=== PATIENT | female | born 1965 | race Two or more races ===

== ENCOUNTER → 2022-07-08 | Outpatient (BNVA) | payer MEDICAID, SELFPAY | END | disposition home or self-care (01) | PROVIDERS: PCP Registered Nurse; Referring Provider Registered Nurse; Visit Provider Registered Nurse | DX: J20.9 Acute bronchitis, unspecified (principal); I10 Essential (primary) hypertension | CPT/HCPCS: 87811; 94640; 96372; 99212; C9803; J1885; A9270 ==

== ENCOUNTER 2024-10-11 07:57 | Outpatient (AMB) | payer MEDICAID, SELFPAY ==
[2024-10-11 08:23] VITALS: BP 141/82; PULSE 78; RESP 18; TEMP 36.3; O2SAT 93; BMI 39.1
--- NOTE | 2024-10-11 08:23 | ORTHONT_ITS ---
Vital signs 10/11/24 08:23 Height 1.47 m Height Method Stated Weight 84.51 kg Weight Measurement Method Standing Scale BMI 39.1 BP 141/82 H Blood Pressure Source Automatic Cuff Blood Pressure Location Left Upper Arm Position Sitting Respiration 18 Pulse 78 Pulse Source Monitor Temp 97.4 F Temp Source Temporal Artery Scan Pulse Oximetry (%) 93 L Oxygen Delivery Method Room Air Med/Allergies Allergies & Medications Allergies No Known Allergies Allergy (Verified 10/11/24 08:24) Medication Reconciliation beclomethasone dipropionate 40 mcg/actuation HFA breath activated aerosol (Qvar RediHaler) 1 puff inhalation BID 09/30/18 [History Confirmed 10/11/24] acetaminophen 500 mg capsule 500 mg PO Q6H PRN pain #14 caps 10/02/19 [Rx Confirmed 10/11/24] amlodipine 10 mg tablet 10 mg PO QDAY 07/08/22 [History Confirmed 10/11/24] albuterol sulfate 90 mcg/actuation aerosol inhaler (ProAir HFA) 2 puff inhalation Q6H PRN shortness of breath or wheezing #8.5 grams 08/06/22 [Rx Confirmed 10/11/24] sodium chloride 0.65 % nasal spray aerosol (Saline Nasal) 2 spray intranasal QID #88 mL 01/25/23 [Rx Confirmed 10/11/24] ciprofloxacin HCl 500 mg tablet (Cipro) 500 mg PO BID #10 tabs 07/10/23 [Rx Confirmed 10/11/24] Exam Exam Patient is in no acute distress and is cooperative with the examination today. Breathing is nonlabored. Patient has a normal mood and affect. Bilateral extremities were evaluated and demonstrates sensation intact to light touch. Palpable pedal pulses are present. No significant edema is present. Bilateral hips were examined. The patient has no pain with log roll of the hips. Internal rotation to 30 degrees and external rotation to 30 degrees is painless. Negative FADIR. Right knee was examined today. The right knee is in reasonable alignment. Range of motion from 0-120 degrees. Knee is stable to varus and valgus as well as AP translation with <5mm. Patient has a negative McMurrays. There is no pain with patellofemoral compression and no crepitus noted. The knee is nontender to palpation. Left knee was examined today. The left knee is in [varus] alignment. Range of motion from [0-115] degrees. Knee is stable to varus and valgus as well as AP translation with <5mm. Patient has a [negative] McMurrays. There is [no] pain with patellofemoral compression and [no] crepitus noted. The knee is [tender] to palpation [medially]. Assessment and Plan Problem List (1) Arthritis of left knee: Status: Acute Plan: Patient is a pleasant 59-year-old female with left knee pain and left knee arthritis. We discussed nonoperative and operative options. She had a cortisone injection recently and reported good relief. I Discussed with her that I would like to see weightbearing x-rays. We can discuss different treatment options depending on what that shows. She just had a recent injection and is doing well from it so we will see her back after this is done or worn off Office Procedures GNS Level of Care Nursing/Assessment Patient Status: Initial/New Patient Nursing Assessment/Reassesment: Medication Reconciliation, Update PMH in EMR and Vital Signs Coordination of Care: Complex Care and Chronic Disease 1-5, Education Complex Pt/Fam, Consent,records obtained, informed consent, 1 Ins Authorization, Results/Orders obtained and Staff clarify orders Special Needs: Language special needs New Patient Charge New Patient Point Assignment: 1109 New Patient Point Charge: HUMAN RESOURCES PROJECT MANAGER Level 3 (9711-0563) MA Intake Visit Data Collection New Patient or Established: Established Patient (seen at [facility] within 3 years) Reason for Visit:: BILATERAL OSTEOARTHRITIS BILATERAL KNEE Seen by Clinical Staff ONLY (RN/MA): No Manager Company Required: Yes PCP or OBGYN visit in last 3 months: Yes Hx Now: No Do You Feel Safe at Home: Yes Authorities Contacted: N/A Questionairres Past Medical History Past Medical History Have you ever been diagnosed with any of the following: Neurological Problems Seizures: No Cardiology Problems Congestive Heart Failure: No Hypertension: Yes Respiratory Problems Chronic Obstructive Pulmonary Disease (COPD): No Asthma: Yes Stomache/Intestinal Problems Gastroesophageal Reflux Disease: Yes Genital/Urinary Problems Renal Disease: No Musculoskeletal Problems Arthritis: Yes Endocrine Problems Diabetes Mellitus Type 1: No Diabetes Mellitus Type 2: No Other Problems Blood Transfusions: No Anesthesia Reactions: Yes Cancer: No Subjective Visit Visit for: new patient and knee (BILATERAL) Immunization / Flu Flu Vaccine in the Last 12 Months: Yes Flu Vaccine Exclusion Criteria: Already Received History of Present Illness Chief complaint: left > right knee pain Patient is a pleasant 59-year-old female with left greater than right knee pain. This knee pain has been ongoing for several months. She had a recent injection and reports that this has helped. She has not had any anti- inflammatories or physical therapy Personal History Occupation: STAY HOME Hobbies: NONE Pain Pain level (0-10): 0 Ambulatory data Ambulatory device: none Treatments Number of previous injections: 1 Improvement with previous injections: Yes Improvement with PT: No Improvement with NSAIDS: no Review of Systems Review of Systems: All systems negative unless otherwise noted in HPI.
== END 2024-10-11 09:13 | disposition home or self-care (01) ==
LOC: HODSRG 07:57
PROVIDERS: PCP Nurse Practitioner Family; Referring Provider Nurse Practitioner Family; Supervising Provider Orthopaedic Surgery Adult Reconstructive Orthopaedic Surgery; Visit Provider Orthopaedic Surgery Adult Reconstructive Orthopaedic Surgery
DX: M17.12 Unilateral primary osteoarthritis, left knee (principal); M25.562 Pain in left knee; M25.561 Pain in right knee; I10 Essential (primary) hypertension; K21.9 Gastro-esophageal reflux disease without esophagitis
CPT/HCPCS: 99203; G0463

== ENCOUNTER 2024-12-15 10:37 | Outpatient (RCR) | payer MEDICAID, SELFPAY | END 2025-01-09 23:59 | disposition home or self-care (01) | LOC: SCTC 10:37 | PROVIDERS: PCP Family Medicine; Referring Provider Nurse Practitioner Family; Visit Provider Nurse Practitioner Family | DX: D32.0 Benign neoplasm of cerebral meninges (principal) | CPT/HCPCS: 99212; G0463 ==

== ENCOUNTER → 2025-01-02 | Outpatient (CLI) | payer MEDICAID, SELFPAY ==
--- NOTE | 2025-01-02 14:44 | XR_ITS ---
Examination: Bilateral knees 2 views Right lateral knee left lateral knee 2 views Bilateral axial knees single view TECHNIQUE: Bilateral AP knees standing single view, bilateral PA knees standing single view flexion. Standing right lateral knee left lateral knee 2 views Bilateral axial knees single view Exam date and time: January 02, 2025 1502 hours INDICATIONS: Bilateral knee pain beginning 2 years ago. FINDINGS: Moderate osteopenia Moderate to advanced narrowing medial joint space right knee Moderate osteoarthritis lateral and right patellofemoral joints Mild narrowing medial joint space left knee Mild osteoarthritis lateral and left patellofemoral joints IMPRESSION: Osteoarthritis as above, most prominent medial joint space right knee
== END | disposition home or self-care (01) ==
PROVIDERS: PCP Family Medicine; Referring Provider Orthopaedic Surgery Adult Reconstructive Orthopaedic Surgery; Visit Provider Orthopaedic Surgery Adult Reconstructive Orthopaedic Surgery
DX: M17.0 Bilateral primary osteoarthritis of knee (principal)
CPT/HCPCS: 73564

== ENCOUNTER 2025-01-06 02:22 | Emergency (ER) | payer MEDICAID, SELFPAY ==
[2025-01-06 02:23] VITALS: BMI 36.3
[2025-01-06 02:31] VITALS: BP 163/81; PULSE 95; RESP 20; TEMP 37.1; O2SAT 95
[2025-01-06] MEDS: AMOXICILLIN/POT CLAV 875 TABLET 1 TAB PO (02:53)
[2025-01-06] MEDS: DEXAMETHASONE SOD PHOS INJ 10 MG/ML VIAL PO (02:53)
--- NOTE | 2025-01-06 04:03 | EDNOTE_ITS ---
Upper Respiratory Inf. RME/HPI General Chief Complaint: Flu Like Symptoms Stated Complaint: cough,unable to breathe through nose Time Seen by Provider: 01/06/25 02:34 Arrival date/time: 01/06/25 02:22 59F with history of asthma and HTN presents to ED with 1 week of cough, nasal congestion, and can't breathe through nose. Limitations: no limitations Related Data Home Medications ?Medication ?Instructions ?Recorded ?Confirmed beclomethasone dipropionate 40 1 puff inhalation BID 1 12/01/17 10/11/24 mcg/actuation HFA breath activated aerosol (Qvar RediHaler) amlodipine 10 mg tablet 10 mg PO QDAY 07/08/2210/11 Previous Rx's ?Medication ?Instructions ?Recorded acetaminophen 500 mg capsule 500 mg PO Q6H PRN pain #1 4 caps 10/02/19 albuterol sulfate 90 mcg/actuation 2 puff inhalation Q 6H PRN 08/06/22 aerosol inhaler (ProAir HFA) shortness of breath or wh eezing #8.5 grams sodium chloride 0.65 % nasal spray 2 spray intranasal QID #88 mL 01/25/23 aerosol (Saline Nasal) ciprofloxacin HCl 500 mg tablet 500 mg PO BID #10 tabs 07/10/23 (Cipro) amoxicillin 875 mg-potassium 1 tab PO BID 7 days #14 t abs 01/06/25 clavulanate 125 mg tablet Allergies Allergy/AdvReac Type Severity Reaction Status Date / Time No Known Allergies Allergy Verified 01/06/25 02:25 Review of Systems Review of Systems Systems Reviewed: All systems reviewed, normal except as documented Constitutional Constitutional: Reports system reviewed and no additional complaints, except as documented, Denies fever(s) and Denies headache(s) ENT Ears, Nose, Mouth, and Throat: Reports as per HPI, Denies disequilibrium, Denies headache(s) and Reports nasal congestion Cardiovascular Cardiovascular: Reports system reviewed and no additional complaints, except as documented, Denies chest pain and Denies dyspnea Respiratory Respiratory: Reports system reviewed and no additional complaints, except as documented, Reports as per HPI, Reports cough and Denies dyspnea Gastrointestinal Gastrointestinal: Reports system reviewed and no additional complaints, except as documented, Denies abdominal pain, Denies nausea and Denies vomiting Neurologic Neurologic: Reports system reviewed and no additional complaints, except as documented, Denies confusion, Denies disequilibrium and Denies headache(s) Psychiatric Psychiatric: Denies confusion Past Medical History Past Medical History NEUROLOGIC: Negative Neurological Disorders or Seizures CARDIAC: Positive Cardiac Disorders and Hypertension; Negative Congestive Heart Failure RESPIRATORY: Positive Asthma; Negative Chronic Obstructive Pulmonary Disease (COPD) GASTROINTESTINAL: Positive Gastrointestinal Disorders and Gastroesophageal Reflux Disease GENITOURINARY: Negative Genitourinary Disorders or Renal Disease MUSCULOSKELETAL: Positive Musculoskeletal Disorders and Arthritis ENDOCRINE: Negative Endocrine Disorders, Diabetes Mellitus Type 1 or Diabetes Mellitus Type 2 HEMATOLOGIC: Negative Blood Disorders OTHER HISTORY: Positive Anesthesia Reactions; Negative Blood Transfusions or Cancer Surgical History SURGICAL: Positive Abdominal Surgery and Section (2006); Negative Cardiac Surgery or Joint Replacement Social History SMOKING STATUS: Never smoker ED Exam General Limitations: Present no limitations General appearance: Present alert and in no apparent distress Head Head exam: Present atraumatic Eye Eye exam: Present normal appearance, PERRL and EOMI ENT ENT exam: Present mucous membranes moist Expanded ENT Exam Nose exam: Present sinus tenderness Neck Neck exam: Present normal inspection, full ROM and trachea midline Chest Chest inspection: Present normal inspection and symmetric chest wall rise Respiratory Respiratory exam: Present normal lung sounds bilaterally Cardiovascular Cardiovascular exam: Present regular rate, normal rhythm and normal heart sounds Abdominal Exam Abdominal exam: Present soft and normal bowel sounds Extremities Exam Extremities exam: Present normal inspection and full ROM Back Exam Back exam: Present normal inspection and full ROM Neurological Exam Neurological exam: Present alert, oriented X3 and CN II-XII intact Psychiatric Psychiatric exam: Present normal affect and normal mood Skin Skin exam: Present warm, dry, intact and normal color Course Quality Measures none Orders Category Date Time Status Bedside Influenza A&B Antigen Test NOW Care 01/06/25 02:36 Completed Amoxicillin/Pot Clav 875 [Augmentin 875] Med 01/06/25 02:44 Discontinued 1 tab PO X1 ONE Dexamethasone Inj [Decadron Inj] Med 01/06/25 02:44 Discontinued 10 mg PO X1 ONE Vital Signs Vital signs: Vital Signs Temperature 98.7 F 01/06/25 02:31 Pulse Rate 95 01/06/25 02:31 Respiratory Rate 20 01/06/25 02:31 Blood Pressure 163/81 H 01/06/25 02:31 Pulse Oximetry (%) 95 01/06/25 02:31 Oxygen Delivery Method Room Air 01/06/25 02:31 O2 at 95% on RA and WNLs Upper Respiratory Infection MDM Narrative MDM Narrative:: 59F with history of asthma and HTN presents to ED with 1 week of cough, nasal congestion, and can't breathe through nose. Physical exam reveals sinus tenderness. Clear lungs and normal WOB. Patient is afebrile, calm, and alert. Swabs neg. Likely sinusitis. Patient data External records reviewed:: [facility] previous records Clinical information provided by:: patient Social determinants that could affect healthcare access:: none Patient has the following chronic illnesses:: asthma and HTN How is presenting disease/condition affected by chronic disease/condition?: exacerbated by Evaluation data The following diagnostics were reviewed and interpreted by me:: lab results and other (specify) Lab and/or radiology exams considered but not ordered:: ordered Interpretation Summary: above Medications / Prescriptions Medications or Prescriptions considered but not ordered:: ordered Medication administrations:: Medication Administration History Discontinued Medications Amoxicillin/Clavulanate Potassium (Amoxicillin/Pot Clav 875 Tablet) 1 tab PO X1 ONE Stop: 01/06/25 02:45 Last Admin: 01/06/25 02:53 Dose: 1 tab Documented By: KAYLA Dexamethasone Sodium Phosphate (Dexamethasone Sod Phos Inj 10 Mg/Ml Vial) 10 mg PO X1 ONE Stop: 01/06/25 02:45 Last Admin: 01/06/25 02:53 Dose: 10 mg Documented By: KAYLA above Consultations Consultation(s) initiated? (list below): No Diagnosis Upper Respiratory Differential Diagnosis: upper respiratory infection, croup, otitis media, sinusitis, viral infection, bronchitis, influenza, pharyngitis and other (CAP) Most likely diagnosis given after review of the tests above:: sinusitis Admission Indicated Admission indicated?: not indicated Admission Request Was there a request for admission?: No Disposition Plan Disposition Plan: Discharge Discharge Attestation Discharge Attestation: The patient and all family members were given an opportunity to ask questions and understood the discharge instructions. Discharge instructions specifically effects, indications for sooner follow up or return to the emergency department, and the expected course of current diagnosis. Patient condition: Stable Discharge Plan Plan Patient Disposition: HOME (Self Care) Disposition Comment: Stable Prescriptions/Referrals Prescriptions/Med Rec: New amoxicillin-pot clavulanate 875-125 mg tablet 1 tab PO BID 7 Days Qty: 14 0RF No Action amlodipine 10 mg tablet 10 mg PO QDAY acetaminophen 500 mg capsule 500 mg PO Q6H PRN (Reason: pain) Qty: 14 0RF Qvar RediHaler 40 mcg/actuation Hfa Aerosol Breath Activated 1 puff INHALATION BID albuterol sulfate [ProAir HFA] 90 mcg/actuation HFA aerosol inhaler 2 puff inhalation Q6H PRN (Reason: shortness of breath or wheezing) Qty: 8.5 0RF ciprofloxacin HCl [Cipro] 500 mg tablet 500 mg PO BID Qty: 10 0RF Saline Nasal 0.65 % aerosol,spray 2 spray intranasal QID Qty: 88 0RF Problem List Clinical Impression: Sinusitis Patient/Caregiver Discharge Instructions Education Materials: Causes of Sinusitis Additional Instructions: Please follow-up with PCP within 24-48 hours and return immediately if symptoms worsen. Print Language: Montenegrin Stand Alone Forms: Patient Portal Info Letter AMOS/JEANINE Supervising Physician AMOS/JEANINE Supervising Physician: Dr. Martínez
== END 2025-01-06 02:59 | disposition home or self-care (01) ==
LOC: SERX 05:23
PROVIDERS: Emergency Provider Emergency Medicine; PCP Family Medicine
DX: J32.9 Chronic sinusitis, unspecified (principal)
CPT/HCPCS: 87400; 99283; J1100; A9270

== ENCOUNTER 2025-01-19 12:57 | Outpatient (AMB) | payer MEDICAID, SELFPAY ==
--- NOTE | 2025-01-19 13:07 | ORTHONT_ITS ---
Vital signs 01/19/25 13:08 Height 1.5 m Height Method Stated Weight 81.76 kg Weight Measurement Method Standing Scale BMI 36.3 BP 130/82 Blood Pressure Source Automatic Cuff Blood Pressure Location Left Upper Arm Position Sitting Respiration 19 Pulse 84 Pulse Source Monitor Temp 96.7 F L Temp Source Temporal Artery Scan Pulse Oximetry (%) 96 Oxygen Delivery Method Room Air Med/Allergies Allergies & Medications Allergies No Known Allergies Allergy (Verified 01/19/25 13:08) Medication Reconciliation beclomethasone dipropionate 40 mcg/actuation HFA breath activated aerosol (Qvar RediHaler) 1 puff inhalation BID 09/30/18 [History Confirmed 01/19/25] acetaminophen 500 mg capsule 500 mg PO Q6H PRN pain #14 caps 10/02/19 [Rx Confirmed 01/19/25] amlodipine 10 mg tablet 10 mg PO QDAY 07/08/22 [History Confirmed 01/19/25] albuterol sulfate 90 mcg/actuation aerosol inhaler (ProAir HFA) 2 puff inhalation Q6H PRN shortness of breath or wheezing #8.5 grams 08/06/22 [Rx Confirmed 01/19/25] sodium chloride 0.65 % nasal spray aerosol (Saline Nasal) 2 spray intranasal QID #88 mL 01/25/23 [Rx Confirmed 01/19/25] ciprofloxacin HCl 500 mg tablet (Cipro) 500 mg PO BID #10 tabs 07/10/23 [Rx Confirmed 01/19/25] Exam Exam Patient is in no acute distress and is cooperative with the examination today. Breathing is nonlabored. Patient has a normal mood and affect. Bilateral extremities were evaluated and demonstrates sensation intact to light touch. Palpable pedal pulses are present. No significant edema is present. Bilateral hips were examined. The patient has no pain with log roll of the hips. Internal rotation to 30 degrees and external rotation to 30 degrees is painless. Negative FADIR. Right knee was examined today. The right knee is in reasonable alignment. Range of motion from 0-120 degrees. Knee is stable to varus and valgus as well as AP translation with <5mm. Patient has a negative McMurrays. There is no pain with patellofemoral compression and no crepitus noted. The knee is nontender to palpation. Left knee was examined today. The left knee is in [varus] alignment. Range of motion from [0-115] degrees. Knee is stable to varus and valgus as well as AP translation with <5mm. Patient has a [negative] McMurrays. There is [no] pain with patellofemoral compression and [no] crepitus noted. The knee is [tender] to palpation [medially]. Xrays demosntrate moderate arthritis bilaterally and joint space narrowing Assessment and Plan Problem List (1) Arthritis of left knee: Status: Acute Plan: Patient is a pleasant 59-year-old female with left knee pain and left knee arthritis. We discussed nonoperative and operative options. She had a cortisone injection recently and reported good relief. We can discuss different treatment options depending on what that shows. She just had a recent injection and is doing well from it so we will see her back after this is done or worn off We will start with just meloxicam Office Procedures GNS Level of Care Nursing/Assessment Patient Status: Established Patient Nursing Assessment/Reassesment: Medication Reconciliation, Update PMH in EMR and Vital Signs Coordination of Care: Complex Care and Chronic Disease 1-5, Education Complex Pt/Fam, Consent,records obtained, informed consent, Results/Orders obtained and Staff clarify orders Special Needs: Language special needs Established Patient Charge Established Patient Point Assignment: 95 Established Patient Point Charge: EP Level 3 (80-115) MA Intake Visit Data Collection New Patient or Established: Established Patient (seen at [facility] within 3 years) Reason for Visit:: XRAY RESULTS/POSS KNEE INJECTIONS Seen by Clinical Staff ONLY (RN/MA): No Radiological Equipment Specialist Required: Yes PCP or OBGYN visit in last 3 months: Yes Hx Now: No Do You Feel Safe at Home: Yes Authorities Contacted: N/A Questionairres Past Medical History Past Medical History Have you ever been diagnosed with any of the following: Neurological Problems Seizures: No Cardiology Problems Congestive Heart Failure: No Hypertension: Yes Respiratory Problems Chronic Obstructive Pulmonary Disease (COPD): No Asthma: Yes Smoking: No Smoking Exposure: No Stomache/Intestinal Problems Gastroesophageal Reflux Disease: Yes Genital/Urinary Problems Renal Disease: No Musculoskeletal Problems Arthritis: Yes Endocrine Problems Diabetes Mellitus Type 1: No Diabetes Mellitus Type 2: No Other Problems Blood Transfusions: No Anesthesia Reactions: Yes Cancer: No Subjective Visit Visit for: follow up visit, knee and x-rays (RESULTS) Immunization / Flu Flu Vaccine in the Last 12 Months: Yes Flu Vaccine Exclusion Criteria: Already Received History of Present Illness Chief complaint: left > right knee pain Patient is a pleasant 59-year-old female with left greater than right knee pain. This knee pain has been ongoing for several months. She had a recent injection and reports that this has helped. She has not had any anti- inflammatories or physical therapy. She has done well with the last injection and it has worked for over 6 months. Personal History Occupation: STAY HOME Hobbies: NONE Pain Pain level (0-10): 1 Pain duration: ON AND OFF Pain location: anterior Pain quality: dull and other (specify) (POPPING) Associated signs & symptoms: none Ambulatory data Ambulatory device: none Treatments Number of previous injections: 1 Improvement with previous injections: No Improvement with PT: No Improvement with NSAIDS: no Review of Systems Review of Systems: All systems negative unless otherwise noted in HPI.
[2025-01-19 13:08] VITALS: BP 130/82; PULSE 84; RESP 19; TEMP 35.9; O2SAT 96; BMI 36.3
== END 2025-01-19 13:24 | disposition home or self-care (01) ==
LOC: HODSRG 12:57
PROVIDERS: PCP Nurse Practitioner Family; Referring Provider Nurse Practitioner Family; Supervising Provider Orthopaedic Surgery Adult Reconstructive Orthopaedic Surgery; Visit Provider Orthopaedic Surgery Adult Reconstructive Orthopaedic Surgery
DX: M17.12 Unilateral primary osteoarthritis, left knee (principal); M25.562 Pain in left knee; I10 Essential (primary) hypertension; K21.9 Gastro-esophageal reflux disease without esophagitis
CPT/HCPCS: 99213; G0463

== ENCOUNTER → 2025-04-17 | Outpatient (CLI) | payer MEDICAID, SELFPAY ==
--- NOTE | 2025-04-17 10:00 | XR_ITS ---
Examination: MRI of brain without intravenous contrast. MRI brain with intravenous contrast. 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 Siemens high-resolution 1.52 Melsisa short bore scanner utilized. Sagittal sections, T1 weighted images, TR 500, TE 14, are performed. Axial sections proton-density and T2-weighted images have been obtained. Inversion recovery axial images, TR 9260, TE 111, TR 2500. Diffusion weighted images, axial sections, TR 4800, TE 128, B value 1000. Axial sections, ADC map, TR 4800, TE 128. Axial and coronal images were also obtained post 16 cc gadolinium administered intravenously. Findings:: Enlargement of the sella turcica is not present. The optic chiasm and infundibular stalk are not remarkable. There is no localized enlargement of the medulla or rosita. Fourth ventricle and cerebellar tonsils appear normal in position. No subacute area of hemorrhage density is seen. Fourth ventricle is midline. Mass in the cerebellopontine angle region is not evident. 7th and 8th nerve complexes exhibit symmetry Globes are symmetrical Orbital musculature including medial lateral rectus muscles do not exhibit abnormality Increased white matter signal is evident punctate focus increased signal in the left parietal lobe Effacement of the cortical sulcal markings is not identified. Mass effect upon the ventricular system is not identified. Diffusion-weighted images demonstrate no focus of restricted diffusion Contrast images demonstrate multiple enhancing skull lesions, no convincing abnormal cerebellar or cerebral enhancing lesion Impression: Negative for acute hemorrhage mass effect or midline shift Multiple enhancing cranial vault lesions No definite abnormal enhancing cerebellar or cerebral lesions
== END | disposition home or self-care (01) ==
LOC: SMRI 09:38
PROVIDERS: PCP Nurse Practitioner Family; Referring Provider Nurse Practitioner Family; Visit Provider Nurse Practitioner Family
DX: G93.89 Other specified disorders of brain (principal)
CPT/HCPCS: 70553; A9579

== ENCOUNTER 2025-05-17 14:29 | Outpatient (RCR) | payer MEDICAID, SELFPAY | END 2025-06-11 23:59 | disposition home or self-care (01) | LOC: SCTC 14:29 | PROVIDERS: PCP Family Medicine; Referring Provider Nurse Practitioner Family; Visit Provider Nurse Practitioner Family | DX: D32.0 Benign neoplasm of cerebral meninges (principal) | CPT/HCPCS: 99212; G0463 ==

== ENCOUNTER 2025-06-28 15:23 | Outpatient (RCR) | payer MEDICAID, SELFPAY ==
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
== END 2025-07-11 23:59 | disposition home or self-care (01) ==
LOC: SCTC 15:23
PROVIDERS: PCP Family Medicine; Referring Provider Family Medicine; Visit Provider Internal Medicine Hematology & Oncology
DX: R93.0 Abnormal findings on diagnostic imaging of skull and head, not elsewhere classified (principal); R74.8 Abnormal levels of other serum enzymes
CPT/HCPCS: 99213; G0463

== ENCOUNTER → 2025-07-12 | Outpatient (CLI) | payer MEDICAID, SELFPAY ==
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
== END | disposition home or self-care (01) ==
LOC: SNUC 08:25
PROVIDERS: PCP Family Medicine; Referring Provider Nurse Practitioner Family; Visit Provider Nurse Practitioner Family
DX: R93.0 Abnormal findings on diagnostic imaging of skull and head, not elsewhere classified (principal); M81.0 Age-related osteoporosis without current pathological fracture
CPT/HCPCS: 78306; A9503

== ENCOUNTER 2025-08-29 14:52 | Outpatient (RCR) | payer MEDICAID, SELFPAY ==
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
== END 2025-09-10 23:59 | disposition home or self-care (01) ==
LOC: SCTC 14:52
PROVIDERS: PCP Family Medicine; Referring Provider Family Medicine; Visit Provider Internal Medicine Hematology & Oncology
DX: R93.0 Abnormal findings on diagnostic imaging of skull and head, not elsewhere classified (principal); R74.8 Abnormal levels of other serum enzymes; M54.9 Dorsalgia, unspecified
CPT/HCPCS: 99212; G0463

== ENCOUNTER → 2025-09-25 | Outpatient (CLI) | payer MEDICAID, SELFPAY ==
[2025-09-22 12:17] LABS: Basophils # (Auto) 0.0 Thou/mm3 (0.0-0.2); Basophils % (Auto) 1 % (0-2.5); Eosinophils # (Auto) 0.1 Thou/mm3 (0.0-0.5); Eosinophils % (Auto) 2 % (0-10); Hematocrit 44.2 % (36.0-46.0); Hemoglobin 15.1 g/dL (12.0-16.0); Immature Granulocytes Auto 0.04 Thou/mm3 (0.00-0.00); Lymphocytes # (Auto) 3.0 Thou/mm3 (1.0-4.8); Lymphocytes % (Auto) 39 % (10-50); Mean Corpuscular HGB Conc 34.2 g/dl (31.0-37.0); Mean Corpuscular Hemoglobin 30.1 pg (25.0-35.0); Mean Corpuscular Volume 88 fL (80-100); Monocytes # (Auto) 0.6 Thou/mm3 (0.0-0.8); Monocytes % (Auto) 8 % (0-12); Neutrophils # (Auto) 4.0 Thou/mm3 (1.8-7.7); Neutrophils % (Auto) 51 % (37-80); Nucleated Red Blood Cell # 0.00 Thou/mm3 (0.00-0.00); Nucleated Red Blood Cell % 0 /100 WBC (0); Platelet Count 304 Thou/mm3 (140-440); RDW Standard Deviation 40.7 fL (36.4-46.3); Red Blood Count 5.01 Miln/mm3 (4.00-5.20); White Blood Count 7.9 Thou/mm3 (3.6-11.0)
[2025-09-22 12:49] LABS: Alanine Aminotransferase 29 U/L (10-49); Albumin, Serum 4.8 gm/dL (3.5-5.0); Albumin/Globulin Ratio 1.7 (1.2-2.2); Alkaline Phosphatase 251 U/L (46-116); Anion Gap 9 (7-16); Aspartate Amino Transferase 23 U/L (0-34); BUN/Creatinine Ratio 19 Ratio (12-20); Bilirubin,Total 0.5 mg/dL (0.3-1.2); Blood Urea Nitrogen 13 mg/dL (9-23); Calcium 9.7 mg/dL (8.3-10.6); Calcium (Corrected) 9.7 mg/dL (8.5-10.1); Carbon Dioxide 28.8 mMol/L (20.0-31.0); Chloride 107 mMol/L (98-107); Creatinine (Component) 0.7 mg/dL (0.6-1.3); Globulin 2.8 gm/dL (2.3-3.5); Glucose 120 mg/dL (74-106); Osmolality,Calculated 289 (275-295); Potassium 3.8 mMol/L (3.4-5.1); Sodium 145 mMol/L (136-145); Total Protein 7.6 gm/dL (5.7-8.2); eGFR > 60 See Note
--- NOTE | 2025-09-25 14:00 | XR_ITS ---
Examination: CT chest with intravenous contrast CT abdomen with intravenous contrast CT pelvis with intravenous contrast 2-D coronal and sagittal reconstructions Time of exam: June 26, 2025, 1452 hours, comparison 07/10/2023 INDICATIONS: Multiple enhancing cranial vault lesions on brain MRI April 17, 2025 CTDI: vol (mGy) : 12 DLP: (mGycm): 831 Technique: Multiple axial images of the chest, abdomen and pelvis with intravenous contrast, 3.0 mm slice thickness. Images obtained post intravenous injection Isovue 370 60 cc. 2-D sagittal and coronal reconstructions. Low dose protocols were performed. One or more of the following dose reduction techniques were used; automated exposure control, adjustment of the mA and/or KV according to patient size, use of iterative reconstruction technique. Findings: 8 mm right thyroid nodule Thoracic aortic calcification no aneurysmal dilatation Negative for pulmonary artery emboli No mediastinal lymphadenopathy. No noncalcified pulmonary nodules No pneumonia pulmonary edema or pleural disease Small calcified granuloma in the right lower lobe No visualized liver or splenic lesion Absent gallbladder No common bile duct stones No pancreatic or adrenal mass No renal or ureteral calculi, no hydronephrosis Aorta normal size Normal appendix Colonic diverticulosis, no diverticulitis Atrophic uterus Prominent osteopenia Urinary bladder intact Moderate osteopenia No findings of osseous metastatic disease IMPRESSION: No mediastinal lymphadenopathy No pneumonia, pulmonary edema, pleural disease or noncalcified pulmonary nodules No abdominal or pelvic lymphadenopathy, no liver lesions Negative for osseous metastatic disease
== END | disposition home or self-care (01) ==
LOC: SCAT 13:32
PROVIDERS: PCP Family Medicine; Referring Provider Internal Medicine Hematology & Oncology; Visit Provider Internal Medicine Hematology & Oncology
DX: R93.0 Abnormal findings on diagnostic imaging of skull and head, not elsewhere classified (principal)
CPT/HCPCS: 36415; 71260; 74177; 80053; 85025; A4649; Q9967